=== PATIENT | male | born 1995 | race Caucasian/White ===

== ENCOUNTER 2025-02-02 12:11 | Emergency (ER) | payer SELFPAY ==
--- NOTE | ~2025-02-02 | XR_ITS ---
EXAMINATION: XR chest 1V portable DATE: 02/02/2025 12:57 INDICATION: Nontraumatic left chest pain TECHNIQUE: frontal view of the chest was obtained. COMPARISON: None FINDINGS: The lungs are clear with no focal airspace opacities, pulmonary edema, pleural effusion or pneumothorax. The cardiomediastinal silhouette is normal. Visualized bones and soft tissues are unremarkable. IMPRESSION: 1. Normal chest radiograph. Reviewed, dictated and finalized at location [facility] IMPRESSION: 1. Normal chest radiograph.
[2025-02-02 12:12] VITALS: BP 147/75; PULSE 62; RESP 16; TEMP 36.6; O2SAT 100
[2025-02-02 12:18] VITALS: PULSE 69
--- NOTE | 2025-02-02 12:27 | ED.CHESTPAIN ---
HPI - Chest Pain General Chief Complaint: Chest Pain Stated Complaint: left side chest pain Time Seen by Provider: 02/02/25 12:27 Source: patient Mode of arrival: ambulatory Limitations: no limitations History of Present Illness HPI narrative: 29 YEARS OLD WHITE MALE CAME TO THE ED BY PRIVATE CAR FROM HOME COMPLAINING OF LEFT CHEST PAIN, TIGHTNESS RADIATING TO LEFT UPPER EXTREMITY STARTED 3 HOURS AGO AT REST. IS GETTING BETTER ON ARRIVAL TO THE ED. PATIENT DENIES ANY TRAUMA OR RECENT PHYSICAL ACTIVITIES. PATIENT DENIES ANY AGGRAVATING OR RELIEVING FACTORS. PATIENT REPORT TONS OF STRESS LATELY. PATIENT HAD MARIJUANA THIS MORNING. DRINKS ALCOHOL OCCASIONALLY. NO FAMILY HISTORY OF CORONARY ARTERY DISEASE, DENIES ANY COCAINE USE Related Data Home Medications ?Medication ?Instructions ?Recorded ?Confirmed ?Last Taken ?Type No Home Medications 02/02/25 02/02/25 Unknown History Allergies Allergy/AdvReac Type Severity Reaction Status Date / Time No Known Allergies Allergy Verified 02/02/25 12:17 Review of Systems Review of Systems: All systems reviewed & are unremarkable except as noted in HPI and below Exam Narrative: GENERAL APPEARANCE: WELL-DEVELOPED, WELL-NOURISHED INTERMITTENT SIGHING SKIN: NORMAL COLOR HEAD: NORMOCEPHALIC, NONTRAUMATIC EYES: CLEAR CONJUNCTIVA ENT: OROPHARYNX NORMAL, EARS NORMAL, NOSE NORMAL NECK: SUPPLE, NONTENDER CHEST AND RESPIRATORY: AIRWAY PATENT, NO RESPIRATORY DISTRESS, NO ACCESSORY MUSCLE USE HEART: REGULAR RATE/RHYTHM ABDOMEN: SOFT, NONTENDER, NO ORGANOMEGALY, QUIET BOWEL SOUNDS VASCULAR: NORMAL PERIPHERAL PULSES, NORMAL CAPILLARY REFILL. MUSCULOSKELETAL: NORMAL RANGE OF MOTION, NONTENDER BACK NEUROLOGIC: ALERT AND ORIENTED ?3, SUPERVISOR ROD PLACING IS NORMAL TESTED, NO GROSS MOTOR DEFICIT Course Vital Signs Vital signs: Vital Signs Temperature 36.6 C 02/02/25 12:12 Pulse Rate 62 02/02/25 12:12 Respiratory Rate 16 02/02/25 12:12 Blood Pressure 147/75 H 02/02/25 12:12 Pulse Oximetry 100 02/02/25 12:12 Oxygen Delivery Room Air 02/02/25 12:12 Temperature 36.6 C 02/02/25 12:12 Pulse Rate 69 02/02/25 12:18 Respiratory Rate 16 02/02/25 12:12 Blood Pressure 147/75 H 02/02/25 12:12 Pulse Oximetry 100 02/02/25 12:12 Oxygen Delivery Room Air 02/02/25 12:12 MDM - Chest Pain MDM Narrative Medical decision making narrative: LEFT CHEST PAIN TIGHTNESS STARTED 3 HOURS AGO AT REST, IMPROVING ON ARRIVAL TO THE ED VITAL SIGNS SHOWING BLOOD PRESSURE 147/75 OTHERWISE WITHIN NORMAL LIMIT PHYSICAL EXAMINATION: RESTLESS PATIENT WITH INTERMITTENT SIGNING DIFFERENTIAL DIAGNOSIS ANXIETY LIKE SYMPTOMS, CHEST WALL PAIN, PNEUMOTHORAX, PLEURAL EFFUSION BLOOD WORKUP TODAY INCLUDES CBC, CMP LIPASE, TROPONIN SHOWED INSIGNIFICANT ABNORMALITY CHEST X-RAY SHOWED NO ACUTE ABNORMALITY EKG ON ARRIVAL SHOWED SINUS BRADYCARDIA AT 58 BEATS PER MINUTE OTHERWISE ACUTE ABNORMALITY DIAGNOSIS CHEST PAIN, ANXIETY LIKE SYMPTOMS THE PT WAS DISCHARGED TO HOME.THE PT,S CONDITION UPON DISCHARGE WAS FAIR,EDUCATION WAS PROVIDED TO THE PT IN REFERENCE TO THE FINAL IMPRESSION,DISCHARGE STUDY RESULTS,TREATMENT,PROGNOSIS AND NEED FOR FOLLOW UP . Differential Diagnosis Differential diagnosis: Likely other ( ABOVE) Lab Data Attestation: I reviewed the patient's lab results. 02/02/25 12:51 02/02/25 12:51 Labs: Lab Results 02/02/25 Range/Units 12:51 WBC 5.9 (4.8-10.8) K/mm3 RBC 4.68 L (4.70-6.10) M/mm3 Hgb 14.4 (14.0-18.0) g/dL Hct 42.5 (40.0-54.0) % MCV 90.8 (78.0-102.0) fL MCH 30.8 (27.0-31.0) pg MCHC 33.9 (32-36) g/dL RDW 12.6 (11.6-14.4) % Plt Count 272 (150-420) K/mm3 MPV 9.3 (8.7-11.0) fl Immature Gran % (Auto) 0.3 H (0.0-0.0) % Neut % (Auto) 48.0 L (50.0-70.0) % Lymph % (Auto) 38.3 (18.0-42.0) % [place] % (Auto) 9.4 (2.0-11.0) % Eos % (Auto) 3.7 (1.0-6.0) % Baso % (Auto) 0.3 (0.0-1.0) % Lymph # (Auto) 2.25 (1.10-4.50) K/mm3 [place] # (Auto) 0.55 (0.10-0.90) K/mm3 Eos # (Auto) 0.22 (0.02-0.50) K/mm3 Baso # (Auto) 0.02 (0.00-0.10) K/mm3 Abs Immat Gran (auto) 0.02 H (0.00-0.00) K/mm3 Absolute Neuts (auto) 2.82 (1.70-7.20) K/mm3 Absolute Nucleated RBC 0.00 (0.00-0.00) K/mm3 Nucleated RBC % 0.0 (0-0.0) % Sodium 140 (137-145) mmol/L Potassium 4.1 (3.4-5.0) mmol/L Chloride 106 (98-107) mmol/L Carbon Dioxide 24 (22-30) mmol/L Anion Gap 10 (4-12) mmol/L BUN 14 (9-20) mg/dL Creatinine 0.79 (0.7-1.3) mg/dL Estim Creat Clear Calc 105 ml/min Estimated GFR > 60 (59 - ) Glucose 95 (65-110) mg/dL Calculated Osmolality 290 (285-295) mOsm/kg Calcium 9.7 (8.4-10.2) mg/dL Total Bilirubin 1.4 H (0.2-1.3) mg/dL AST 34 (17-59) U/L ALT 28 (6-50) U/L Alkaline Phosphatase 51 (38-126) U/L Troponin I Pending Total Protein 7.8 (6.3-8.2) g/dL Albumin 5.2 H (3.5-5.1) g/dL Lipase 79 (23-300) U/L Imaging Data Radiologist's impression: Impressions Chest X-Ray 02/02/25 13:05 IMPRESSION: 1. Normal chest radiograph. ECG Data EKG #1: Attestation: I personally reviewed and interpreted this ECG as follows: ECG completion date: 02/02/25 Interpretation: SINUS BRADYCARDIA AT 56 BEATS FOR UA, BORDERLINE EKG NO PREVIOUS EKG AVAILABLE FOR COMPARISON Critical Care Time Critical Care Time Critical Care Time: No Discharge Plan Discharge Clinical Impression: Atypical chest pain Patient Disposition: Home Condition: Stable Instructions: Chest Pain (ED) Additional Instructions: RETURN IF SYMPTOMS ARE WORSENING , CALL YOUR FAMILY PHYSICIAN FOR APPOINTMENT, TAKE TYLENOL NEEDED FOR ACHES AND PAIN, CONTINUE HOME MEDICATIONS. Patient Language: Turkish Prescriptions: No Action No Home Medications Follow-up/Referrals: Francisco,VIVIAN Harmon [Primary Care Provider] Stand Alone Forms: Work/School Release IP
--- NOTE | 2025-02-02 12:37 | ECG_ITS ---
Test Date: 2025-02-02 12:20:08 Measurements Intervals [place] Rate: 56 P: 72 SC: 167 QRS: 87 QRSD: 89 T: 56 QT: 361 QTc: 350 Interpretive Statements SINUS BRADYCARDIA No previous ECG available for comparison Electronically Signed On 02-03-2025 18:08:41 CLAIMS REPRESENTATIVE by Nanci Hawley M.D.
[2025-02-02] MEDS: LORazepam (*CRX) 1 MG TABLET PO (12:51)
[2025-02-02 12:57] LABS: Hematocrit 42.5 % (40.0-54.0); Hemoglobin 14.4 g/dL (14.0-18.0); Immature Granulocyte Percent A 0.3 % (0.0-0.0); Lymphocytes Absolute Auto 2.25 K/mm3 (1.10-4.50); Mean Corpuscular HGB Conc 33.9 g/dL (32-36); Mean Corpuscular Hemoglobin 30.8 pg (27.0-31.0); Mean Corpuscular Volume 90.8 fL (78.0-102.0); Nucleated Red Blood Cells Absolute Auto 0.00 K/mm3 (0.00-0.00); Nucleated Red Blood Cells Perc 0.0 % (0-0.0); Platelet Count Result 272 K/mm3 (150-420); Red Blood Count 4.68 M/mm3 (4.70-6.10); White Blood Count 5.9 K/mm3 (4.8-10.8)
[2025-02-02 13:20] LABS: Alanine Aminotransferase 28 U/L (6-50); Albumin Level 5.2 g/dL (3.5-5.1); Alkaline Phosphatase 51 U/L (38-126); Anion Gap 10 mmol/L (4-12); Aspartate Amino Transferase 34 U/L (17-59); Bilirubin,Total 1.4 mg/dL (0.2-1.3); Blood Urea Nitrogen 14 mg/dL (9-20); Calcium 9.7 mg/dL (8.4-10.2); Carbon Dioxide 24 mmol/L (22-30); Chloride 106 mmol/L (98-107); Estimated CRCL calculation 105 ml/min; Estimated Glomerular Filt Rate > 60; Glucose 95 mg/dL (65-110); Lipase 79 U/L (23-300); Osmolality Calculated 290 mOsm/kg (285-295); Potassium 4.1 mmol/L (3.4-5.0); Sodium 140 mmol/L (137-145); Total Protein 7.8 g/dL (6.3-8.2)
[2025-02-02 13:28] VITALS: BP 126/70; PULSE 61; RESP 16; O2SAT 99
[2025-02-02 13:32] LABS: Troponin I < 0.012 ng/mL (0.000-0.034)
== END 2025-02-02 13:41 | disposition home or self-care (01) ==
PROVIDERS: Emergency Provider Emergency Medicine; PCP Physician Assistant
DX: R07.89 Other chest pain (principal)
CPT/HCPCS: 36415; 71045; 80053; 83690; 84484; 85025; 93005; 99284; A9270